=== PATIENT | male | born 1950 | race Caucasian/White ===

== ENCOUNTER 2023-12-13 09:24 | Day surgery (SDC) | payer MEDICARE ==
[~2023-12-13] VITALS: Ht 172.7 cm; Wt 72.8 kg
[2023-12-13] VITALS (7 sets, daily range): BP systolic 118–152; BP diastolic 68–82; PULSE 61–73; RESP 13–16; TEMP 97.5; O2SAT 92–99
[2023-12-13] MEDS: cefazolin 2gm/D5W 100mL 100 ML IV ONE (05:30)
[~2023-12-13 09:24] MED LIST: NO HOME MEDS
[2023-12-13] MEDS: ringers solution, lacted 1,000 ML IV SCH ×2 (10:38→14:55)
[2023-12-13] MEDS: famotidine 20mg tablet PO ONE (10:38)
[2023-12-13 10:51] LABS: BASOPHILS % (AUTO) 0.4 % (0-1); EOSINOPHILS % (AUTO) 1.4 % (0-6); HEMATOCRIT 43.6 % (42.0-52.0); HEMOGLOBIN 14.9 g/dl (14.0-17.9); LYMPHOCYTES # (AUTO) 0.9 X10'3 (1.1-4.8); LYMPHOCYTES % (AUTO) 27.6 % (21-51); MEAN CORPUSCULAR HEMOGLOBIN 33.2 PG (27.0-31.0); MEAN CORPUSCULAR HGB CONC 34.2 g/dL (33.0-36.5); MEAN CORPUSCULAR VOLUME 97.1 FL (78-98); MEAN PLATELET VOLUME 9.3 FL (7.4-10.4); MONOCYTES # (AUTO) 0.3 X10'3 (0-0.9); MONOCYTES % (AUTO) 8.6 % (2-12); PLATELET COUNT 177 X10'3 (140-440); RED BLOOD COUNT 4.49 X10'6 (4.70-6.10); RED CELL DISTRIBUTION WIDTH 12.6 % (11.5-14.5); WHITE BLOOD COUNT 3.3 X10'3 (4.5-11.0)
[2023-12-13 11:13] LABS: ALANINE AMINOTRANSFERASE 21 U/L (12-78); ALBUMIN 3.7 G/DL (3.4-5.0); ALBUMIN/GLOBULIN RATIO 1.4 (1.1-1.5); ALKALINE PHOSPHATASE 61 IU/L (46-116); ANION GAP 8 (8-16); ASPARTATE AMINO TRANSFERASE 21 U/L (10-37); BILIRUBIN,TOTAL 1.1 MG/DL (0.1-1.0); BLOOD UREA NITROGEN 15 MG/DL (7-18); BUN/CREATININE RATIO 23.8 (10.0-20.0); CALCIUM 8.8 MG/DL (8.5-10.1); CHLORIDE 104 MMOL/L (99-107); CREATININE 0.63 MG/DL (0.60-1.10); GLUCOSE 95 MG/DL (70-104); POTASSIUM 4.1 MMOL/L (3.5-5.1); SODIUM 140 MMOL/L (135-145); TOTAL CARBON DIOXIDE 27.6 MMOL/L (24-32); TOTAL PROTEIN 6.4 G/DL (6.4-8.2); eCRCL 101 ML/MIN; eGFR > 90 ML/MIN
[2023-12-13] MEDS ORDERED: LIDOcaine 1% 30ml preserv. free vial ONE (11:49)
[2023-12-13] MEDS ORDERED: BUPIVAcaine/PF 2.5mg/ml (0.25%) 10ml vial ONE (11:49)
[2023-12-13] MEDS ORDERED: morphine 2 MG/ML inj. syringe IV PRN (12:15)
[2023-12-13] MEDS ORDERED: morphine 4 MG/ML inj SYRINge IV PRN (12:15)
[2023-12-13] MEDS ORDERED: enalaprilat dihydrate 2.5mg/2ml vial IV PRN (12:15)
[2023-12-13] MEDS ORDERED: proCHLORperazine 10 MG/2 ml inj IV PRN (12:15)
[2023-12-13] MEDS ORDERED: meperidine/PF 25mg/ml syringe IV PRN ×2 (12:15)
[2023-12-13] MEDS ORDERED: labetalol 20mg/4ml (5mg/ml) syringe IV PRN (12:15)
[2023-12-13] MEDS ORDERED: ondansetron/PF 4mg/2ml inj IV PRN (12:15)
[2023-12-13] MEDS ORDERED: sevoflurane 250ml liquid IH ONE (13:10)
[2023-12-13] MEDS ORDERED: fentaNYL/PF 50MCG/1 ML 2ML syringe ONE (13:23)
[2023-12-13] MEDS ORDERED: midazolam 1 mg/ML 2ml injection ONE (13:23)
[2023-12-13] MEDS: BUPIVAcaine 0.5% W/EPI /PF 10ml vial IJ ONE (13:52)
[2023-12-13] MEDS: LIDOcaine 1% 30ml preserv. free vial IJ ONE (13:52)
[2023-12-13] MEDS ORDERED: acetaminophen 1,000mg/100ml IV 100 ML IV ONE (14:32)
[2023-12-13] MEDS ORDERED: propofol inj 20 ML IV ONE (14:32)
[2023-12-13] MEDS ORDERED: rocuronium 10mg/ml inj IV ONE (14:33)
[2023-12-13] MEDS ORDERED: ondansetron/PF 4mg/2ml inj ONE (14:33)
[2023-12-13] MEDS ORDERED: glycopyrrolate 0.2mg/ml inj ONE (14:43)
[2023-12-13] MEDS: meperidine/PF 25mg/ml syringe IV PRN (14:54)
[2023-12-13] MEDS ORDERED: HYDROcodone/acetaminophen 5mg/325mg tablet PO PRN (15:10)
== END 2023-12-13 16:32 | disposition home or self-care (01) ==
LOC: PAS 09:24
PROVIDERS: ATTEND Surgery
DX: K40.91 Unilateral inguinal hernia, without obstruction or gangrene, recurrent (principal); Z79.899 Other long term (current) drug therapy; I45.10 Unspecified right bundle-branch block; M19.90 Unspecified osteoarthritis, unspecified site; Z85.46 Personal history of malignant neoplasm of prostate
CPT/HCPCS: 36415; 49651; 80053; 82948; 85025; 93005; C1781; J0131; J0665; J0690; J1100; J2175; J2250; J2405; J2704; J2710; J3010; J3490; J7030; J7120; Z7506; Z7508; Z7512; A4215; A4618; S0020